=== PATIENT | female | born 1955 | race Caucasian/White ===

== ENCOUNTER 2023-01-06 18:34 | Emergency (ER) | payer MEDICARE, OTHER, SELFPAY ==
--- NOTE | ~2023-01-06 | XR_ITS ---
EXAMINATION: XR FOOT, RIGHT CLINICAL INFORMATION: Pain and swelling of right foot with question of osteomyelitis COMPARISON: Right foot 12/02/2019 TECHNIQUE: AP, lateral, and oblique views of the right foot. FINDINGS: Again seen is a large metallic staple overlying the proximal phalanx of first toe with healing of the previously seen fracture. Again noted are 2 screws in the distal first metatarsal head with a healed fracture. A large plantar calcaneal spur is again seen as is enthesopathy at the Achilles insertion site. No bony destructive lesions are seen to suggest the presence of osteomyelitis. XR/XR foot RT 2V IMPRESSION: No evidence of osteomyelitis. Chronic findings as described above. No acute finding. If clinical concern is high, MRI may be more sensitive.
[2023-01-06 18:58] VITALS: BP 141/77; PULSE 61; RESP 16; TEMP 36.8; O2SAT 96; BMI 27.9
[2023-01-06 19:40] LABS: MANUAL DIFF FLAG NO
[2023-01-06 19:41] LABS: Basophils Percent Auto 0.5 % (0-2); Eosinophils Percent Auto 0.7 % (0-4); Hematocrit 35.3 % (37.0-47.0); Hemoglobin 11.8 g/dl (12.0-16.0); Imm Gran Abs Auto 0.01 X10*3/uL (0.00-0.03); Imm Gran Pct Auto 0.2 % (0.0-0.4); Lymphocytes Absolute Auto 2.5 X10*3/uL (1.2-4.9); Lymphocytes Percent Auto 43.1 % (20-40); Mean Corpuscular HGB Conc 33.4 g/dl (31.0-35.0); Mean Corpuscular Hemoglobin 29.9 pg (27.0-33.0); Mean Corpuscular Volume 89.4 fL (80.0-98.0); Mean Platelet Volume 10.6 fL (9.4-12.3); Monocytes Absolute Auto 0.6 X10*3/uL (0.1-1.2); Monocytes Percent Auto 10.1 % (2-11); Neutrophils Absolute Auto 2.6 x10*3/uL (2.0-8.3); Neutrophils Percent Auto 45.4 % (45-73); Platelet Count 146 X10*3/uL (160-400); Red Blood Count 3.95 X10*6/uL (4.20-5.50); Red Cell Distribution Width 12.5 % (11.0-16.0); White Blood Count 5.8 X10*3/uL (4.8-10.8)
[2023-01-06 19:53] LABS: Anion Gap 11 (12-20); Blood Urea Nitrogen 17 mg/dL (9-16); C Reactive Protein 0.25 mg/dL (< or = 0.50); Carbon Dioxide 30 mmol/L (22-29); Chloride 104 mmol/L (96-108); Estimated Glomerular Filt Rate > 60; Glucose Random 101 mg/dL (60-115); Potassium 3.8 mmol/L (3.3-5.1); Sodium 141 mmol/L (135-145)
[2023-01-06 20:29] LABS: Erythrocyte Sedimentation Rate 11 MM/HR (0-20)
--- NOTE | 2023-01-06 20:59 | ED_ITS ---
HPI - General Adult General Chief complaint: Extremity Problem Stated complaint: swollen foot, red, hard to walk on, nausea Time Seen by Provider: 01/06/23 20:37 Source: patient, RN notes reviewed and old records reviewed Mode of arrival: ambulatory Limitations: no limitations History of Present Illness HPI narrative: 67-year-old female presents for evaluation of right foot swelling and pain. Patient reports that she noticed a small area of redness and pain to the top of her right foot last night. When she woke up this morning the area was a little more swelling and redness was beginning to develop Throughout the day today there has been significantly more redness, swelling and increased pain. The patient denies any touch to the skin. She does state that she was cleaning last night but does not remember injuring the foot She reports subjective fevers around dinner time today but nothing since She is not a diabetic Related Data Previous Rx's Medication Instructions Recorded cephalexin 500 mg capsule 500 mg PO QID #28 caps 01/06/23 Allergies Allergy/AdvReac Type Severity Reaction Status Date / Time No Known Allergies Allergy Verified 01/06/23 18:58 Review of Systems Constitutional: Constitutional: Reports as per HPI, Denies chills, Denies fatigue, Denies fever(s) and Denies headache(s) ENT: Denies headache(s) Cardiovascular: Cardiovascular: Denies chest pain and Denies dyspnea Respiratory: Respiratory: Denies cough and Denies dyspnea Gastrointestinal: Gastrointestinal: Denies abdominal pain, Denies constipation and Denies vomiting Genitourinary: Genitourinary: Denies dysuria Integumentary/Breasts: Skin/Breast: Reports erythema Neurologic: Denies headache(s) and Denies focal weakness Endocrine: Endocrine: Denies fatigue PMFSH Social History Social History Advance Directives: No Advance Directives Information Provided: No Physical Exam ED Vital Signs: Vital Signs - 24 hr 01/06/23 18:58 Temperature 98.3 F Pulse Rate 61 Respiratory Rate 16 Blood Pressure 141/77 H Pulse Oximetry 96 Oxygen Delivery Method Room Air BMI result Body Mass Index 27.9 Const General: healthy appearing, comfortable, no acute distress, alert and awake Nutritional Appearance: well nourished Eyes Eyelids: Yes eyelids normal Conjunctivae: conjunctivae normal Sclerae: sclerae normal Corneas: corneas normal EOM: EOMs intact bilaterally Neck Neck: Yes full ROM Resp Effort & Inspection: normal respiratory effort, able to speak in complete sentences, no audible wheezes and not labored Auscultation: clear to auscultation bilaterally Cardio Rate: regular rate Rhythm: regular rhythm Skin Other: Patient has an approximately 7 cm area of erythema to the dorsum of the right foot. There does not appear to be any open wounds or lesions. There is mild edema to the area. No calf tenderness or edema to the lower extremity above the ankle. No palpable deformities Extrem Other: Moving all extremities well without any obvious deformities Medical Decision Making Medical Decision Making MDM Narrative: [age] year female presents for evaluation of what appears to be a clinical cellulitis. There are no open wounds but the patient feels as though she may been bit by some sort of insect last night. She now has spreading redness, increased warmth and pain to the area. Will treat with cephalexin, the patient is not a diabetic. Labs and x-ray reviewed without significant abnormalities. The area of erythema was traced with a surgical pen Differential Diagnosis Cellulitis Gout DVT less likely Dermatitis Lab Data 01/06/23 19:34 01/06/23 19:34 Labs: Lab Results 01/06/23 01/06/23 01/06/23 Range/Units 19:34 19:34 19:34 WBC 5.8 (4.8-10.8) X10*3/uL RBC 3.95 L (4.20-5.50) X10*6/uL Hgb 11.8 L (12.0-16.0) g/dl Hct 35.3 L (37.0-47.0) % MCV 89.4 (80.0-98.0) fL MCH 29.9 (27.0-33.0) pg MCHC 33.4 (31.0-35.0) g/dl RDW 12.5 (11.0-16.0) % Plt Count 146 L (160-400) X10*3/uL MPV 10.6 (9.4-12.3) fL Immature Gran % (Auto) 0.2 (0.0-0.4) % Neut % (Auto) 45.4 (45-73) % Lymph % (Auto) 43.1 H (20-40) % Finney % (Auto) 10.1 (2-11) % Eos % (Auto) 0.7 (0-4) % Baso % (Auto) 0.5 (0-2) % Lymph # (Auto) 2.5 (1.2-4.9) X10*3/uL Finney # (Auto) 0.6 (0.1-1.2) X10*3/uL Eos # (Auto) 0.0 (0.0-0.4) X10*3/uL Baso # (Auto) 0.0 (0.0-0.2) X10*3/uL Abs Immat Gran (auto) 0.01 (0.00-0.03) X10*3/uL Absolute Neuts (auto) 2.6 (2.0-8.3) x10*3/uL Absolute Nucleated RBC 0.000 (0.0-0.012) X10*3/uL Nucleated RBC % (auto) 0.0 (0.0-0.2) /100WBC ESR 11 (0-20) MM/HR Sodium 141 (135-145) mmol/L Potassium 3.8 (3.3-5.1) mmol/L Chloride 104 (96-108) mmol/L Carbon Dioxide 30 H (22-29) mmol/L Anion Gap 11 L (12-20) BUN 17 H (9-16) mg/dL Creatinine 0.69 (0.5-1.4) mg/dL Estim Creat Clear Calc 79.0 Estimated GFR > 60 Random Glucose 101 (60-115) mg/dL Calcium 9.0 (8.4-10.2) mg/dL C-Reactive Protein 0.25 (< or = 0.50) mg/dL Discharge Plan Discharge Clinical Impression: Cellulitis Patient Disposition: Home, Self-Care Instructions: Cellulitis (ED) Additional Instructions: Take the antibiotic 4 times daily for 7 days You should apply warm compresses every 4 hours for 15 minutes Return for new or worsening symptoms Prescriptions: New cephalexin 500 mg capsule 500 mg PO QID Qty: 28 0RF
[2023-01-06] MEDS: cephALEXin 500 MG CAPSULE PO (21:03)
== END 2023-01-06 21:28 | disposition home or self-care (01) ==
PROVIDERS: Emergency Provider Internal Medicine; PCP Internal Medicine
DX: L03.115 Cellulitis of right lower limb (principal); M79.671 Pain in right foot; Z79.899 Other long term (current) drug therapy
CPT/HCPCS: 36415; 73620; 80048; 85025; 85652; 86140; 99282; 99283